=== PATIENT | male | born 1955 | race Caucasian/White ===

== ENCOUNTER 2018-05-16 08:53 | Day surgery (SDC) | payer MEDICARE, MEDICAID ==
[2018-05-15 16:15] LABS: CLARITY,URINE CLEAR (Clear); COLOR,URINE YELLOW (Yellow); GLUCOSE, URINE NEGATIVE (Neg); KETONES,URINE NEGATIVE (Neg); LEUKOCYTE ESTERASE ,URINE NEGATIVE (Neg); NITRITES, URINE NEGATIVE (Neg); OCCULT BLOOD,URINE NEGATIVE (Neg); PROTEIN,URINE NEGATIVE (Neg); UROBILINOGEN,URINE 0.2 E.U/dL (0.2-1.0)
[2018-05-15 16:16] LABS: EOSINOPHILS # (AUTO) 0.4 X10'3 (0-0.9); EOSINOPHILS % (AUTO) 7.7 % (0-6); LYMPHOCYTES # (AUTO) 1.6 X10'3 (1.1-4.8); MEAN CORPUSCULAR HEMOGLOBIN 30.4 PG (27.0-31.0); MEAN CORPUSCULAR HGB CONC 33.5 g/dL (33.0-36.5); MEAN CORPUSCULAR VOLUME 90.7 FL (78-98); MEAN PLATELET VOLUME 7.6 FL (7.4-10.4); MONOCYTES # (AUTO) 0.4 X10'3 (0-0.9); MONOCYTES % (AUTO) 9.6 % (2-12); NEUTROPHILS # (AUTO) 2.2 X10'3 (1.8-7.7); NEUTROPHILS % (AUTO) 47.7 % (42-75); PRE OP HEMATOCRIT 40.6 % (42.0-52.0); PRE OP HEMOGLOBIN 13.6 g/dL (14.0-17.9); PRE OP PLATELET COUNT 221 X10'3 (140-440); RED BLOOD COUNT 4.48 X10'6 (4.70-6.10); RED CELL DISTRIBUTION WIDTH 13.2 % (11.5-14.5)
[2018-05-15 16:18] LABS: UA COLLECTION TYPE CLN CATCH MIDSTREAM
[2018-05-15 16:28] LABS: ALBUMIN 3.7 G/DL (3.4-5.0); ALBUMIN/GLOBULIN RATIO 1.2 (1.1-1.5); ALKALINE PHOSPHATASE 202 IU/L (46-116); BLOOD UREA NITROGEN 15 MG/DL (7-18); BUN/CREATININE RATIO 12.5 (5.4-32.0); CALCIUM 9.5 MG/DL (8.5-10.1); CHLORIDE 106 MMOL/L (99-107); PRE OP ALT 78 U/L (30-65); PRE OP ANION GAP 6 (8-16); PRE OP AST 51 U/L (10-37); PRE OP BILIRUB, TOTAL 0.5 MG/DL (0.0-1.0); PRE OP GLUCOSE 69 MG/DL (70-104); PRE OP POTASSIUM 4.2 MMOL/L (3.4-5.1); PRE OP SODIUM 143 MMOL/L (135-145); TOTAL CARBON DIOXIDE 31.2 MMOL/L (24-32); TOTAL PROTEIN 6.8 G/DL (6.4-8.2); eGFR 62 ML/MIN
[~2018-05-16] VITALS: Ht 177.8 cm; Wt 68.1 kg
[2018-05-16] VITALS (9 sets, daily range): BP systolic 114–144; BP diastolic 67–93
[~2018-05-16 08:53] MED LIST: HYDR-3972 PO; MULT-933 PO; cefotetan 2gm/isosm dext IVPB 50 ML IV ONE; famotidine 20mg tablet PO ONE; ringers solution, lacted 1,000 ML IV SCH
[2018-05-16] MEDS ORDERED: BUPIVAcaine/PF 2.5mg/ml (0.25%) 10ml vial ONE ×2 (10:43→11:42)
[2018-05-16] MEDS ORDERED: ceFAZolin 1000mg inj ONE (10:43)
[2018-05-16] MEDS ORDERED: propofol inj 20 ML IV ONE (10:48)
[2018-05-16] MEDS ORDERED: fentaNYL /PF 50mcg/ml 5ml ampule ONE (10:48)
[2018-05-16] MEDS ORDERED: midazolam 2 mg/2 ml injection ONE (10:48)
[2018-05-16] MEDS ORDERED: sevoflurane 250ml liquid IH ONE (10:52)
[2018-05-16] MEDS ORDERED: rocuronium 10mg/ml inj IV ONE (11:02)
[2018-05-16] MEDS ORDERED: ringers solution, lacted 1,000 ML IV SCH (11:13)
[2018-05-16] MEDS ORDERED: morphine 4 MG/ML inj SYRINge IV PRN ×2 (11:15)
[2018-05-16] MEDS ORDERED: ondansetron/PF 4mg/2ml inj IV PRN (11:15)
[2018-05-16] MEDS ORDERED: meperidine/PF 25mg/ml syringe IV PRN ×3 (11:15)
[2018-05-16] MEDS ORDERED: proCHLORperazine 10 MG/2 ml inj IV PRN (11:15)
[2018-05-16] MEDS ORDERED: glycopyrrolate 0.2mg/ml inj ONE (11:43)
[2018-05-16] MEDS ORDERED: neostigmine methylsulfate 1 MG/ML 10ml vial ONE (11:43)
--- NOTE | 2018-05-16 12:00 | NUR ---
Received from OR via [facility] , accompanied by Anesthesiologist PILAR and report given by Anesthesiolgist. PATIENT WITH 20G PIV IN RIGHT UE RUNNING LR AT 100. MEDICATED FOR PAIN UPON ARRIVAL. CURTIS LOVE FOR COMFORT AT PATIENT REQUEST. PATIENT VSS. Addendum: 05/16/18 at 1236 by Carlos Mccarthy RN, RN Amended: Links added.
[2018-05-16] MEDS ORDERED: HYDROcodone/acetaminophen 10/325mg tab PO ONE (12:45)
--- NOTE | 2018-05-16 13:20 | NUR ---
ALL DC CRITERIA HAS BEEN MET. IV TAKEN OUT WITHOUT COMPLICATIONS. ALL INSTRUCTIONS COVERED AND ALL QUESTIONS ANSWERED. DRESSINGS CDI. OUT VIA WHEELCHAIR TO PERSONAL VEHICLE WHERE PATIENT WAS SECURED IN AND DRIVEN HOME BY FAMILY. DRESSING CDI TO ABDOMEN. Addendum: 05/16/18 at 1339 by Carlos Mccarthy RN, RN Amended: Links added.
== END 2018-05-16 13:20 | disposition home or self-care (01) ==
LOC: PAS 08:53
PROVIDERS: ATTEND Surgery
DX: K81.0 Acute cholecystitis (principal)
CPT/HCPCS: 36415; 47562; 80053; 81003; 82948; 85025; 93005; J0690; J2175; J2250; J2704; J2710; J3010; J3490; J7120; A7000